=== PATIENT | male | born 1980 | race Hispanic/Latino ===

== ENCOUNTER 2018-05-28 01:26 | Emergency (ER) | payer MEDICARE ==
[2018-05-28] MEDS ORDERED: ACETAMINOPHEN 325 MG TAB ONE (02:18)
== END 2018-05-28 03:49 | disposition home or self-care (01) ==
LOC: EDH 01:26
DX: S20.212A Contusion of left front wall of thorax, initial encounter (principal); S00.03XA Contusion of scalp, initial encounter; W08.XXXA Fall from other furniture, initial encounter; Y93.89 Activity, other specified; Y92.89 Other specified places as the place of occurrence of the external cause; Y99.8 Other external cause status
CPT/HCPCS: 70450; 71100; 72125

== ENCOUNTER 2019-11-21 17:28 | Emergency (ER) | payer MEDICARE | END 2019-11-21 18:44 | disposition home or self-care (01) | LOC: EDH 17:28 | DX: Z04.1 Encounter for examination and observation following transport accident (principal); F20.89 Other schizophrenia; I10 Essential (primary) hypertension; G47.33 Obstructive sleep apnea (adult) (pediatric); V89.2XXA Person injured in unspecified motor-vehicle accident, traffic, initial encounter; Y93.89 Activity, other specified; Y92.488 Other paved roadways as the place of occurrence of the external cause; Y99.8 Other external cause status | CPT/HCPCS: 99281 ==

== ENCOUNTER 2024-03-18 08:28 | Day surgery (SDC) | payer MEDICAID, MEDICARE ==
[~2024-03-18] VITALS: Ht 172.7 cm; Wt 77.1 kg
[2024-03-18] VITALS (11 sets, daily range): BP systolic 101–111; BP diastolic 65–77; PULSE 68–77; RESP 14–18
[2024-03-18] MEDS: 0.9%NACL 1000ML 1,000 ML IV ONE (06:10)
[2024-03-18] MEDS ORDERED: FOLIC ACID PO (10:00)
[2024-03-18] MEDS ORDERED: MEMA10TA21 PO (10:00)
[2024-03-18] MEDS ORDERED: TEMA15CA PO (10:00)
[2024-03-18] MEDS ORDERED: MIRT45TA90 PO (10:00)
[2024-03-18] MEDS ORDERED: OLAN20TA35 PO (10:00)
[2024-03-18] MEDS ORDERED: LISI5TAB21 PO (10:00)
[2024-03-18] MEDS ORDERED: PSYL284P7 PO (10:00)
[2024-03-18] MEDS ORDERED: MULT-1203 PO (10:00)
[2024-03-18] MEDS ORDERED: ASCO500T20 PO (10:00)
[2024-03-18] MEDS ORDERED: VITAMIN B12 PO (10:00)
[2024-03-18] MEDS ORDERED: PROPOFOL 10 MG/ML 20ML VIAL IV ONE (11:06)
== END 2024-03-18 12:35 | disposition home or self-care (01) ==
LOC: ENDO 08:28 → DAH 08:28 → ENDO 12:35
PROVIDERS: ATTEND Internal Medicine Gastroenterology
DX: D50.9 Iron deficiency anemia, unspecified (principal); K29.50 Unspecified chronic gastritis without bleeding; K31.89 Other diseases of stomach and duodenum; K21.00 Gastro-esophageal reflux disease with esophagitis, without bleeding; R10.13 Epigastric pain; F41.9 Anxiety disorder, unspecified; F32.A Depression, unspecified; I10 Essential (primary) hypertension; E78.5 Hyperlipidemia, unspecified; D69.6 Thrombocytopenia, unspecified; K59.00 Constipation, unspecified; R63.4 Abnormal weight loss; K80.20 Calculus of gallbladder without cholecystitis without obstruction; Z65.8 Other specified problems related to psychosocial circumstances; Z79.01 Long term (current) use of anticoagulants; Z79.899 Other long term (current) drug therapy
CPT/HCPCS: 43239; 45378; J7030 ×2; J3490; A4215; A4223; A7002; A4222; A4221; A4663; A4606; J2704

== ENCOUNTER 2024-03-19 08:30 | Day surgery (SDC) | payer MEDICAID ==
[~2024-03-19] VITALS: Ht 165.1 cm; Wt 78.9 kg
[2024-03-19] VITALS (12 sets, daily range): BP systolic 94–109; BP diastolic 52–80; PULSE 68–74; RESP 14–17
[~2024-03-19 08:30] MED LIST: ASCO500T20 PO; FOLIC ACID PO; LISI5TAB21 PO; MEMA10TA21 PO; MIRT45TA90 PO; MULT-1203 PO; OLAN20TA35 PO; PSYL284P7 PO; TEMA15CA PO; VITAMIN B12 PO
[2024-03-19] MEDS ORDERED: PROPOFOL 10 MG/ML 20ML VIAL IV ONE (11:07)
== END 2024-03-19 12:50 | disposition other institution (70) ==
LOC: DAH 08:30
PROVIDERS: ATTEND Internal Medicine Gastroenterology
DX: R63.4 Abnormal weight loss (principal); K21.9 Gastro-esophageal reflux disease without esophagitis; R93.2 Abnormal findings on diagnostic imaging of liver and biliary tract; K76.0 Fatty (change of) liver, not elsewhere classified; D50.9 Iron deficiency anemia, unspecified; D69.6 Thrombocytopenia, unspecified; K80.20 Calculus of gallbladder without cholecystitis without obstruction; I10 Essential (primary) hypertension; F41.9 Anxiety disorder, unspecified; E78.5 Hyperlipidemia, unspecified; F03.90 Unspecified dementia, unspecified severity, without behavioral disturbance, psychotic disturbance, mood disturbance, and anxiety; F20.9 Schizophrenia, unspecified; F31.9 Bipolar disorder, unspecified; Z79.899 Other long term (current) drug therapy
CPT/HCPCS: 45378; J3490; A4620; A4215 ×2; A4223; A7002; A4222; A4221; A4663; J7030; A4606; J2704